=== PATIENT | female | born 1990 | race Two or more races ===

== ENCOUNTER 2018-09-13 11:26 | Inpatient (IN) | payer OTHER ==
[2018-09-13] MEDS ORDERED: Nalbuphine 20 MG/1 ML Amp IVPUSH PRN (13:59)
[2018-09-13] MEDS ORDERED: Sodium Chloride 0.9% 10 ML Syringe FLUSH PRN (13:59)
[2018-09-13] MEDS ORDERED: Acetaminophen 325 MG Tab PO PRN ×2 (13:59→23:05)
[2018-09-13] MEDS ORDERED: Ondansetron 4 MG/2 ML SDV IVPUSH PRN ×2 (13:59→16:17)
[2018-09-13] MEDS ORDERED: Lactated Ringers 1,000 ML IV SCH (14:00)
[2018-09-13] MEDS ORDERED: Oxytocin/Lactated Ringers 10 UNIT/1,000 ML BAG IV SCH ×3 (14:00→23:05)
--- NOTE | 2018-09-13 14:25 | PCM.LDHP ---
L&D History of Present Illness - General Date of Service: 09/13/18 Admit Problem/Dx: Patient Status Order with Admit Dx/Problem 09/13/18 13:59 Patient Status [ADT] Routine Admission Diagnosis/Problem Admission Diagnosis/Problem Spontaneous rupture of membranes Source of Information: Patient, Family History Limitations: Reports: Language Barrier (Fairly good Kyrgyz skills) - History of Present Illness Introduction:: Gladis Valdez (Opal) is a 28-year-old at 40 weeks 4 days by 12 week ultrasound (TONY 09/09/2018) who initially presented for evaluation of decreased movement and contractions. She states that this morning she was not feeling the baby move very much. She also reports that she was having a mild pinching sensation in her lower abdomen that would come and go every 5-10 minutes. She also reports that she was having some pink tinged vaginal discharge when she would use restroom. On arrival to labor and delivery she was able to get a reactive NST and when the nurse was performing the cervical exam she had spontaneous rupture of membranes with clear fluid. She states that since being at the hospital and having the reactive NST she has felt the baby move. Timing/Duration: Reports: sudden onset (Sudden gush of clear fluid at time of cervical exam), intermittent (Contractions with a pinching sensation in her lower abdomen) Location, : Reports: Abdomen (Lower), Uterus Quality: Reports: Other (Pinching) Severity: Mild Improves with: Reports: None Worsens with: Reports: None Associated Symptoms: Reports: vaginal bleeding (Light pink discharge), vaginal fluid (Moderate amount of fluid with rupture of membranes) Present Illness Comments:: Gladis Valdez (Opal) is a 28-year-old at 40 weeks 4 days by 12 week ultrasound (see TONY 09/09/2018) who presents with spontaneous rupture membranes with clear fluid. She has had routine care with Dr. Irwin since 9 weeks gestational age. Review of her labs shows B+ blood type with negative antibody screen. Her rubella was negative and she is not immune. Her syphilis, hepatitis B surface antigen and HIV tests were all negative. Her gonorrhea and Chlamydia test were both negative. She had a negative urine culture that only showed contamination. She had an abnormal Pap smear with colposcopy performed that was felt to have low-grade changes. Her anatomy ultrasound was within normal limits. Her 1 hour glucose test was normal at 114. Her hemoglobin was 11.5 with platelets of 303 on 06/15/2018. Her GBS was negative. This is her first . Her is complicated by: * Rubella nonimmune status, patient declines vaccination after delivery * Patient declines other vaccinations during including influenza and TDaP * ancestry * Abnormal LSIL Pap smear with plans for further evaluation after delivery - Related Data Allergies/Adverse Reactions: Allergies Allergy/AdvReac Type Severity Reaction Status Date / Time sulfamethoxazole Allergy Dizziness Verified 08/10/18 18:47 [From Bactrim] trimethoprim [From Bactrim] Allergy Dizziness Verified 08/10/18 18:47 Home Medications: Home Meds PNV95/Ferrous Fumarate/FA [ Vitamin Tablet] 1 each PO BEDTIME 09/13/18 [ History] Past Medical History - Past Health History Medical/Surgical History: Denies 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 - Recreational Drug Use Recreational Drug Use: No - Living Situation & Occupation Living situation: Reports: , with Significant Other H&P Review of Systems - Review of Systems: Review Of Systems: See Below General: Denies: Fever, Chills, Malaise, Weakness, Fatigue HEENT: Reports: Glasses. Denies: Headaches, Rhinitis, Post Nasal Drip, Sinus Congestion, Sore Throat, Visual Changes Pulmonary: Denies: Shortness of Breath, Wheezing, Cough Cardiovascular: Reports: Palpitations (Past evening but has resolved this morning). Denies: Chest Pain, Lightheadedness Gastrointestinal: Denies: Abdominal Pain, Constipation, Diarrhea, Nausea, Vomiting Genitourinary: Denies: Dysuria, Frequency, Burning, Pain, Urgency Musculoskeletal: Reports: Back Pain. Denies: Joint Pain, Muscle Pain Skin: Denies: Rash, Lesions Psychiatric: Denies: Depression, Anxiety Hematologic/Lymphatic: Denies: Anemia L&D Exam - Exam Exam: See Below - Vital Signs Vital Signs: Last Vital Signs Temp 36.1 C 09/13/18 11:47 Pulse 68 09/13/18 13:31 Resp 17 09/13/18 11:47 BP 133/69 09/13/18 13:31 Pulse Ox Weight: 105.233 kg - OB Specific Contraction Duration (sec): 45-60 Contraction Frequency (min): Irregular Contraction Intensity: Mild Movement: Active Heart Tones: Present Heart Tones per Min: 125 (+15 x 15 accelerations, occasional variable decelerations) Presentation: Vertex Estimated Weight: 7-7.5 pounds by Emanuel's - No Score No Score Cervix Position: Posterior No Score Consistency: Soft No Score Effacement: >80% (80%) No Score Dilation: 3-4 cm (3 cm) No Score Infant's Station: -2 No Score Total: 8 - Exam General: Alert, Oriented HEENT: Conjunctiva Clear, EOMI Neck: Supple, Trachea Midline Lungs: Clear to Auscultation, Normal Respiratory Effort Cardiovascular: Regular Rate, Regular Rhythm GI/Abdominal Exam: Soft, Non-Tender, No Distention, Other (Gravid). No: Guarding, Rigid, Rebound Back Exam: Normal Inspection, Full Range of Motion Extremities: Normal Inspection, No Pedal Edema Skin: Warm, Dry, Intact Psychiatric: Alert, Normal Affect, Normal Mood - Problem List (1) 40 weeks gestation of SNOMED Code(s): 97392494 ICD Code: Z3A.40 - 40 WEEKS GESTATION OF Status: Acute Current Visit: Yes (2) ancestry requiring population-specific genetic screening SNOMED Code(s): 55911715, 392761887, 341982226 ICD Code: Z13.9 - ENCOUNTER FOR SCREENING, UNSPECIFIED Status: Acute Current Visit: Yes (3) Rubella non-immune status, antepartum SNOMED Code(s): 022537774 ICD Code: O99.89 - OTH DISEASES AND CONDITIONS COMPL PREG/CHLDBRTH; Z28.3 - UNDERIMMUNIZATION STATUS Status: Acute Current Visit: Yes (4) Abnormal Pap smear of cervix SNOMED Code(s): 746956615 ICD Code: R87.619 - UNSP ABNORMAL CYTOLOG FINDINGS IN SPECMN FROM CERVIX UTERI Status: Acute Current Visit: Yes Problem List Initiated/Reviewed/Updated: Yes Orders Last 24hrs: Active Orders 24 hr Category Date Time Status Patient Status [ADT] Routine ADT 09/13/18 13:59 Ordered Activity as Tolerated [RC] PFP Care 09/13/18 13:59 Ordered Communication Order [RC] ASDIRECTED Care 09/13/18 13:59 Ordered Communication Order [RC] ASDIRECTED Care 09/13/18 14:02 Ordered Communication Order [RC] ASDIRECTED Care 09/13/18 14:02 Ordered Heart Tones [RC] ASDIRECTED Care 09/13/18 14:00 Ordered Notify Provider Vital Signs [RC] PRN Care 09/13/18 14:01 Ordered Notify Provider [RC] ASDIRECTED Care 09/13/18 14:02 Ordered Notify Provider [RC] PFP Care 09/13/18 13:59 Ordered Notify Provider [RC] PRN Care 09/13/18 13:59 Ordered Peripheral IV Care [RC] . DIRECTED Care 09/13/18 14:00 Ordered Pump Management, Intrathecal [RC] ASDIRECTED Care 09/13/18 14:01 Ordered Urinary Catheter Assessment [RC] ASDIRECTED Care 09/13/18 13:59 Ordered Vital Signs [RC] PER UNIT ROUTINE Care 09/13/18 13:59 Ordered Regular Diet [DIET] Diet 09/13/18 Lunch Ordered CBC WITH AUTO DIFF [HEME] Routine Lab 09/13/18 13:59 Ordered RAPID PLASMA REAGIN,RPR [CHEM] Routine Lab 09/13/18 14:02 Ordered Acetaminophen [Tylenol] Med 09/13/18 13:59 Ordered 650 mg PO Q6H PRN Lactated Ringers [Ringers, Lactated] 1,000 ml Med 09/13/18 14:00 Ordered IV ASDIRECTED Nalbuphine [Nubain] Med 09/13/18 13:59 Ordered 10 mg IVPUSH Q2H PRN Ondansetron [Zofran] Med 09/13/18 13:59 Ordered 4 mg IVPUSH Q4H PRN Oxytocin/Lactated Ringers [Pitocin in LR 10 Units/1,000 Med 09/13/18 14:00 Ordered ML] 10 unit in 1,000 ml IV .CONTINUOUS Oxytocin/Lactated Ringers [Pitocin in LR 10 Units/1,000 Med 09/13/18 14:15 Ordered ML] 10 unit in 1,000 ml IV TITRATE Sodium Chloride 0.9% [Saline Flush] Med 09/13/18 13:59 Ordered 10 ml FLUSH ASDIRECTED PRN Electronic Heart Tones Ext w TOCO [WOMSER] Oth 09/13/18 13:59 Ordered Routine Electronic Heart Tones Internal [WOMSER] Per Unit Oth 09/13/18 13:59 Ordered Routine Peripheral IV Insertion Adult [OM.PC] Routine Oth 09/13/18 13:59 Ordered Resuscitation Status Routine Resus Stat 09/13/18 13:59 Ordered Medication Orders Acetaminophen (Tylenol) 650 mg PO Q6H PRN PRN Reason: Pain (Mild 1-3) and fever Lactated Ringer's (Ringers, Lactated) 1,000 mls @ 100 mls/hr IV ASDIRECTED PAT Oxytocin/Lactated Ringer's (Pitocin In Lr 10 Units/1,000 Ml) 10 unit in 1,000 mls @ 100 mls/hr IV .CONTINUOUS PAT Oxytocin/Lactated Ringer's (Pitocin In Lr 10 Units/1,000 Ml) 10 unit in 1,000 mls @ 12 mls/hr IV TITRATE PAT; Protocol Nalbuphine HCl (Nubain) 10 mg IVPUSH Q2H PRN PRN Reason: Pain (moderate 4-6) Ondansetron HCl (Zofran) 4 mg IVPUSH Q4H PRN PRN Reason: Nausea/Vomiting Sodium Chloride (Saline Flush) 10 ml FLUSH ASDIRECTED PRN PRN Reason: Keep Vein Open Assessment/Plan Comment:: Refer to observation for spontaneous rupture of membranes Start Pitocin for augmentation of labor with irregular contractions noted despite rupture membranes Continuous monitoring Place IV and have Lactated Ringer's at 125 ml/hr May have small amounts of regular diet Activity as tolerated May have epidural as desired Plans to breast-feed after delivery Anticipate vaginal delivery unless otherwise indicated Alcides Vasquez M.D. 2:38 PM 09/13/2018
[2018-09-13] MEDS ORDERED: Nalbuphine 20 MG/ML 1 ML Syringe IVPUSH PRN (15:00)
[2018-09-13] MEDS ORDERED: fentaNYL 100 MCG/2 ML SDV EPIDUR PRN (16:17)
[2018-09-13] MEDS ORDERED: ePHEDrine 50 MG/ML SDV IVPUSH PRN (16:17)
[2018-09-13] MEDS ORDERED: fentaNYL/Bupivacaine-NS 2 MCG/ML-0.125%/PF 100 ML Bag EP SCH (16:30)
--- NOTE | 2018-09-13 17:20 | PCM.PREANE ---
Preanesthetic Assessment - Anesthesia/Transfusion/Family Hx Anesthesia History: No Prior Anesthesia Family History of Anesthesia Reaction: No Transfusion History: No Prior Transfusion(s) Intubation History: Unknown - Review of Systems General: No Symptoms Pulmonary: No Symptoms Cardiovascular: Palpitations Gastrointestinal: No Symptoms (GERD) Neurological: No Symptoms Other: Reports: None - Physical Assessment NPO Status Date: 09/13/18 NPO Status Time: 17:30 Pulse: 68 O2 Sat by Pulse Oximetry: 99 Respiratory Rate: 17 Blood Pressure: 133/69 Temperature: 36.1 C Vital Signs: Last Vital Signs Temp 36.1 C 09/13/18 13:59 Pulse 73 09/13/18 13:59 Resp 17 09/13/18 11:47 BP 113/70 09/13/18 13:59 Pulse Ox Height: 1.7 m Weight: 105.233 kg ASA Class: 2 Mental Status: Alert & Oriented x3 Airway Class: Mallampati = 2 Dentition: Reports: Normal Dentition, Caries Thyro-Mental Finger Breadths: 3 Mouth Opening Finger Breadths: 3 ROM/Head Extension: Full Lungs: Clear to Auscultation, Normal Respiratory Effort Cardiovascular: Regular Rate, Regular Rhythm, No Murmurs - Lab Values: Laboratory Last Values WBC 11.86 K/mm3 (3.98-10.04) H 09/13/18 14:00 RBC 5.28 M/mm3 (3.98-5.22) H 09/13/18 14:00 Hgb 12.3 gm/L (11.2-15.7) 09/13/18 14:00 Hct 35.3 % (34.1-44.9) 09/13/18 14:00 MCV 66.9 fl (79.4-94.8) L 09/13/18 14:00 MCH 23.3 pg (25.6-32.2) L 09/13/18 14:00 MCHC 34.8 g/dl (32.2-35.5) 09/13/18 14:00 RDW Std Deviation 38.8 fL (36.4-46.3) 09/13/18 14:00 Plt Count 250 K/mm3 (182-369) 09/13/18 14:00 Neut % (Auto) 79.0 % (34.0-71.1) H 09/13/18 14:00 Lymph % (Auto) 11.6 % (19.3-51.7) L 09/13/18 14:00 Ashley % (Auto) 8.0 % (4.7-12.5) 09/13/18 14:00 Eos % (Auto) 0.8 (0.7-5.8) 09/13/18 14:00 Baso % (Auto) 0.2 % (0.1-1.2) 09/13/18 14:00 Neut # (Auto) 9.38 K/mm3 (1.56-6.13) H 09/13/18 14:00 Lymph # (Auto) 1.37 K/mm3 (1.18-3.74) 09/13/18 14:00 Ashley # (Auto) 0.95 K/mm3 (0.24-0.36) H 09/13/18 14:00 Eos # (Auto) 0.09 K/mm3 (0.04-0.36) 09/13/18 14:00 Baso # (Auto) 0.02 K/mm3 (0.01-0.08) 09/13/18 14:00 Manual Slide Review Abnormal smear 09/13/18 14:00 Above labs reviewed and noted and within acceptable ranges to proceed with epidural if desired. - Allergies Allergies/Adverse Reactions: Allergies Allergy/AdvReac Type Severity Reaction Status Date / Time sulfamethoxazole Allergy Dizziness Verified 08/10/18 18:47 [From Bactrim] trimethoprim [From Bactrim] Allergy Dizziness Verified 08/10/18 18:47 - Anesthesia Plan Pre-Op Medication Ordered: None - Acknowledgements Anesthesia Type Planned: Epidural Pt an Appropriate Candidate for the Planned Anesthesia: Yes Alternatives and Risks of Anesthesia Discussed w Pt/Guardian: Yes Pt/Guardian Understands and Agrees with Anesthesia Plan: Yes PreAnesthesia Questionnaire - Past Health History Medical/Surgical History: Denies 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 USE Smoking Status *Q: Never Smoker Second Hand Smoke Exposure: No Recreational Drug Use History: No - HOME MEDS Home Medications: Home Meds PNV95/Ferrous Fumarate/FA [ Vitamin Tablet] 1 each PO BEDTIME 09/13/18 [ History] - CURRENT (IN HOUSE) MEDS Current Meds: Current Medications Acetaminophen (Tylenol) 650 mg PO Q6H PRN PRN Reason: Pain (Mild 1-3) and fever Ephedrine Sulfate (Ephedrine Sulfate) 5 mg IVPUSH ASDIRECTED PRN PRN Reason: Hypotension Fentanyl (Sublimaze) 100 mcg EPIDUR Q3H PRN PRN Reason: Pain Fentanyl/Bupivacaine HCl ([id number]-[id number] 2 Mcg/Ml-0.125%) 100 ml EP ASDIRECTED PAT Lactated Ringer's (Ringers, Lactated) 1,000 mls @ 100 mls/hr IV ASDIRECTED PAT Last Admin: 09/13/18 14:30 Dose: 100 mls/hr Oxytocin/Lactated Ringer's (Pitocin In Lr 10 Units/1,000 Ml) 10 unit in 1,000 mls @ 100 mls/hr IV .CONTINUOUS PAT Oxytocin/Lactated Ringer's (Pitocin In Lr 10 Units/1,000 Ml) 10 unit in 1,000 mls @ 12 mls/hr IV TITRATE PAT; Protocol Last Titration: 09/13/18 16:51 Dose: 10 munits/min, 60 mls/hr Nalbuphine HCl (Nubain) 10 mg IVPUSH Q2H PRN PRN Reason: Pain (moderate 4-6) Ondansetron HCl (Zofran) 4 mg IVPUSH Q4H PRN PRN Reason: Nausea/Vomiting Ondansetron HCl (Zofran) 4 mg IVPUSH ONETIME PRN PRN Reason: Nausea/Vomiting Sodium Chloride (Saline Flush) 10 ml FLUSH ASDIRECTED PRN PRN Reason: Keep Vein Open Discontinued Medications Nalbuphine HCl (Nubain) 10 mg IVPUSH Q2H PRN PRN Reason: Pain (moderate 4-6)
--- NOTE | 2018-09-13 19:54 | PCM.PNLD ---
Labor Progress Note - VS & Meds Vital Signs: Last Vital Signs Temp 36.1 C 09/13/18 18:36 Pulse 68 09/13/18 18:36 Resp 17 09/13/18 18:36 BP 133/69 09/13/18 18:36 Pulse Ox 99 09/13/18 18:36 Active Medications: Current Medications Acetaminophen (Tylenol) 650 mg PO Q6H PRN PRN Reason: Pain (Mild 1-3) and fever Ephedrine Sulfate (Ephedrine Sulfate) 5 mg IVPUSH ASDIRECTED PRN PRN Reason: Hypotension Fentanyl (Sublimaze) 100 mcg EPIDUR Q3H PRN PRN Reason: Pain Fentanyl/Bupivacaine HCl (Vqutmrik-Tqjte-Jb 2 Mcg/Ml-0.125%) 100 ml EP ASDIRECTED PAT Lactated Ringer's (Ringers, Lactated) 1,000 mls @ 100 mls/hr IV ASDIRECTED PAT Last Admin: 09/13/18 14:30 Dose: 100 mls/hr Oxytocin/Lactated Ringer's (Pitocin In Lr 10 Units/1,000 Ml) 10 unit in 1,000 mls @ 100 mls/hr IV .CONTINUOUS PAT Oxytocin/Lactated Ringer's (Pitocin In Lr 10 Units/1,000 Ml) 10 unit in 1,000 mls @ 12 mls/hr IV TITRATE PAT; Protocol Last Titration: 09/13/18 16:51 Dose: 10 munits/min, 60 mls/hr Nalbuphine HCl (Nubain) 10 mg IVPUSH Q2H PRN PRN Reason: Pain (moderate 4-6) Ondansetron HCl (Zofran) 4 mg IVPUSH Q4H PRN PRN Reason: Nausea/Vomiting Ondansetron HCl (Zofran) 4 mg IVPUSH ONETIME PRN PRN Reason: Nausea/Vomiting Sodium Chloride (Saline Flush) 10 ml FLUSH ASDIRECTED PRN PRN Reason: Keep Vein Open Discontinued Medications Nalbuphine HCl (Nubain) 10 mg IVPUSH Q2H PRN PRN Reason: Pain (moderate 4-6) - Uterine Contractions Uterine Monitoring Mode: IUPC Contraction Frequency (min): 1-3 Contraction Duration (sec): 60 Contraction Intensity: Moderate to Strong Uterine Resting Tone: Soft - Monitoring Monitor Mode: Doppler/Auscultation Heart Rate (FHR) Baseline: 140 Heart Rate (FHR) Variability: Moderate (6-25 bmp) Accelerations: Present, 15x15 Decelerations: Early, Recurrent (>50% x 20 min) Strip Review: Category I - Vaginal Exam Dilation (cm): 6 Effacement (Percent): 90 Station: -1 Cervical Position: Anterior Sterile Vaginal Exam Performed By: Alcides Vasquez Vaginal Exam Comment: Intrauterine pressure catheter placed without difficulty due to difficulty monitoring contractions. IUPC was placed without difficulty. Mother and baby tolerated procedure without complications. - Labor Progress (Free Text) Labor Progress: Patient was having recurrent decelerations with difficulty monitoring contractions pattern with external tocometer. Intrauterine pressure catheter was discussed with the patient and she gave verbal consent to have IUPC placed. IUPC was placed without difficulty. Once the IUPC was placed with her able to monitor contractions more consistently in the decelerations that the patient was having were early decelerations and not late decelerations. We will continue to monitor closely. Patient declines epidural at this time. Anticipate vaginal delivery unless otherwise indicated. Alcides Vasquez M.D. 7:54 PM 09/13/2018
[2018-09-13] MEDS ORDERED: Lidocaine 1% 50 ML MDV ONE (21:26)
[2018-09-13] MEDS ORDERED: Lidocaine 1% 20 ML MDV INJECT SCH (21:45)
--- NOTE | 2018-09-13 22:29 | PCM.DEL ---
L & D Note - General Info Date of Service: 09/13/18 Mother's Due Date: 09/09/18 - Delivery Note Labor: Spontaneous, Augmented by Oxytocin Delivery Outcome: Livebirth Infant Delivery Method: Spontaneous Vaginal Delivery-Single Presentation: Right Occiput Anterior (KEVIN) Nuchal Cord: None Prep: Povidone-Iodine (Betadine Anesthesia Type: Local Anesthetic: Lidocaine (Xylocaine) 1% Plain Local Anesthetic Volume: Other (12 mL) Amniotic Fluid Description: Clear Episiotomy Type: None Laceration: 2nd Degree (right vaginal and periurethral repaired with 3-0 and 4- 0 Vicryl, left posterior vaginal repaired with 3-0 Vicryal) Placenta: Intact, Spontaneous Cord: 3 Vessels Estimated Blood Loss: 450 Resuscitation Needed: No [place]: Bulb Syringe, Stimulated, Warmed, [place] Used Provider: Alcides Vasquez Score 1 min: 8 Score 5 min: 9 Second Stage Interventions: Reports: Pushing Effectively, Pushing, Pulls Own Legs Back, Pushing, Stirrups/Leg Supports Delivery Comments (Free Text/Narrative):: Stage I: Gladis Valdez (Opal) was admitted after she had spontaneous rupture membranes on cervical exam. She had initially presented for decreased movement and had a reactive NST. She was also having intermittent pain in the lower abdomen and the nurse was going to check her cervix when she had spontaneous rupture membranes. She had clear fluid with rupture membranes. On admission her cervix was dilated to 3 cm. She was GBS negative. She was given Pitocin for augmentation of labor. She progressed to complete and pushing. Stage II: On 09/13/2018 she had a normal vaginal delivery of a live female at 2117. Apgars of 8 & 9. Weight of 3140 g (6 lbs 15 oz). Length of 19.75 inches. There was no nuchal cord. Infant was delivered in KEVIN position. The cord was doubly clamped and cut by father of the infant. Infant was placed on mother's abdomen. Stage III: She had a spontaneous delivery of an intact placenta in Aline presentation. Three vessel cord. She was given pitocin and fundal massage. She had a second-degree right vaginal and periurethral laceration that was repaired with 3-0 Vicryl and 4-0 Vicryl. She had a second-degree left posterior vaginal laceration that was repaired with 3-0 Vicryl. Mom and baby were stable to recovery. EBL of 450 mL. Alcides Vasquez MD 10:29 PM 09/13/2018 - General Info Date of Service: 09/13/18 - Patient Data Vitals - Most Recent: Last Vital Signs Temp 36.1 C 09/13/18 18:36 Pulse 68 09/13/18 18:36 Resp 17 09/13/18 18:36 BP 133/69 09/13/18 18:36 Pulse Ox 99 09/13/18 18:36 Weight - Most Recent: 105.233 kg Lab Results Last 24 Hours: Laboratory Results - last 24 hr 09/13/18 Range/Units 14:00 WBC 11.86 H (3.98-10.04) K/mm3 RBC 5.28 H (3.98-5.22) M/mm3 Hgb 12.3 (11.2-15.7) gm/L Hct 35.3 (34.1-44.9) % MCV 66.9 L (79.4-94.8) fl MCH 23.3 L (25.6-32.2) pg MCHC 34.8 (32.2-35.5) g/dl RDW Std Deviation 38.8 (36.4-46.3) fL Plt Count 250 (182-369) K/mm3 Neut % (Auto) 79.0 H (34.0-71.1) % Lymph % (Auto) 11.6 L (19.3-51.7) % [place] % (Auto) 8.0 (4.7-12.5) % Eos % (Auto) 0.8 (0.7-5.8) Baso % (Auto) 0.2 (0.1-1.2) % Neut # (Auto) 9.38 H (1.56-6.13) K/mm3 Lymph # (Auto) 1.37 (1.18-3.74) K/mm3 [place] # (Auto) 0.95 H (0.24-0.36) K/mm3 Eos # (Auto) 0.09 (0.04-0.36) K/mm3 Baso # (Auto) 0.02 (0.01-0.08) K/mm3 Manual Slide Review Abnormal smear Med Orders - Current: Current Medications Acetaminophen (Tylenol) 650 mg PO Q6H PRN PRN Reason: Pain (Mild 1-3) and fever Ephedrine Sulfate (Ephedrine Sulfate) 5 mg IVPUSH ASDIRECTED PRN PRN Reason: Hypotension Fentanyl (Sublimaze) 100 mcg EPIDUR Q3H PRN PRN Reason: Pain Fentanyl/Bupivacaine HCl (Hislkgiv-Waoch-Me 2 Mcg/Ml-0.125%) 100 ml EP ASDIRECTED PAT Lactated Ringer's (Ringers, Lactated) 1,000 mls @ 100 mls/hr IV ASDIRECTED PAT Last Admin: 09/13/18 14:30 Dose: 100 mls/hr Oxytocin/Lactated Ringer's (Pitocin In Lr 10 Units/1,000 Ml) 10 unit in 1,000 mls @ 100 mls/hr IV .CONTINUOUS PAT Oxytocin/Lactated Ringer's (Pitocin In Lr 10 Units/1,000 Ml) 10 unit in 1,000 mls @ 12 mls/hr IV TITRATE PAT; Protocol Last Titration: 09/13/18 16:51 Dose: 10 munits/min, 60 mls/hr Lidocaine HCl (Xylocaine 1%) 50 ml INJECT .ONETIME PAT Last Admin: 09/13/18 21:45 Dose: 50 ml Nalbuphine HCl (Nubain) 10 mg IVPUSH Q2H PRN PRN Reason: Pain (moderate 4-6) Ondansetron HCl (Zofran) 4 mg IVPUSH Q4H PRN PRN Reason: Nausea/Vomiting Ondansetron HCl (Zofran) 4 mg IVPUSH ONETIME PRN PRN Reason: Nausea/Vomiting Sodium Chloride (Saline Flush) 10 ml FLUSH ASDIRECTED PRN PRN Reason: Keep Vein Open Discontinued Medications Lidocaine HCl (Xylocaine 1%) Confirm Administered Dose 50 ml .ROUTE .STK-MED ONE Stop: 09/13/18 21:27 Last Admin: 09/13/18 21:38 Dose: Not Given Nalbuphine HCl (Nubain) 10 mg IVPUSH Q2H PRN PRN Reason: Pain (moderate 4-6) - Problem List & Annotations (1) 40 weeks gestation of SNOMED Code(s): 97465484 Code(s): Z3A.40 - 40 WEEKS GESTATION OF Status: Acute Current Visit: Yes (2) ancestry requiring population-specific genetic screening SNOMED Code(s): 88379690, 767791309, 281475172 Code(s): Z13.9 - ENCOUNTER FOR SCREENING, UNSPECIFIED Status: Acute Current Visit: Yes (3) Rubella non-immune status, antepartum SNOMED Code(s): 796137947 Code(s): O99.89 - OTH DISEASES AND CONDITIONS COMPL PREG/CHLDBRTH; Z28.3 - UNDERIMMUNIZATION STATUS Status: Acute Current Visit: Yes (4) Abnormal Pap smear of cervix SNOMED Code(s): 087254285 Code(s): R87.619 - UNSP ABNORMAL CYTOLOG FINDINGS IN SPECMN FROM CERVIX UTERI Status: Acute Current Visit: Yes (5) Vaginal delivery SNOMED Code(s): 067820157 Code(s): O80 - ENCOUNTER FOR FULL-TERM UNCOMPLICATED DELIVERY Status: Acute Current Visit: Yes (6) Second degree perineal laceration during delivery SNOMED Code(s): 9409475 Code(s): O70.1 - SECOND DEGREE PERINEAL LACERATION DURING DELIVERY Status: Acute Current Visit: Yes - Problem List Review Problem List Initiated/Reviewed/Updated: Yes - My Orders Last 24 Hours: My Active Orders 09/13/18 13:59 Patient Status [ADT] Routine Activity as Tolerated [RC] PFP Communication Order [RC] ASDIRECTED Notify Provider [RC] PFP Notify Provider [RC] PRN Urinary Catheter Assessment [RC] ASDIRECTED Vital Signs [RC] PER UNIT ROUTINE Acetaminophen [Tylenol] 650 mg PO Q6H PRN Ondansetron [Zofran] 4 mg IVPUSH Q4H PRN Sodium Chloride 0.9% [Saline Flush] 10 ml FLUSH ASDIRECTED PRN Electronic Heart Tones Ext w TOCO [WOMSER] Routine Electronic Heart Tones Internal [WOMSER] Per Unit Routine Peripheral IV Insertion Adult [OM.PC] Routine Resuscitation Status Routine 09/13/18 14:00 Heart Tones [RC] ASDIRECTED Peripheral IV Care [RC] Q2HR RAPID PLASMA REAGIN,RPR [CHEM] Routine Lactated Ringers [Ringers, Lactated] 1,000 ml IV ASDIRECTED Oxytocin/Lactated Ringers [Pitocin in LR 10 Units/1,000 ML] 10 unit in 1,000 ml IV .CONTINUOUS 09/13/18 14:01 Notify Provider Vital Signs [RC] PRN Pump Management, Intrathecal [RC] ASDIRECTED 09/13/18 14:02 Communication Order [RC] ASDIRECTED Communication Order [RC] ASDIRECTED Notify Provider [RC] ASDIRECTED 09/13/18 14:15 Oxytocin/Lactated Ringers [Pitocin in LR 10 Units/1,000 ML] 10 unit in 1,000 ml IV TITRATE 09/13/18 15:00 Nalbuphine [Nubain] 10 mg IVPUSH Q2H PRN 09/13/18 21:45 Lidocaine 1% [Xylocaine 1%] 50 ml INJECT .ONETIME 09/13/18 22:20 Patient Status Manage Transfer [TRANSFER] Routine 09/13/18 Lunch Regular Diet [DIET] - Plan Plan:: Admit to inpatient following normal spontaneous vaginal delivery Continue Pitocin per unit protocol following delivery of placenta and lactated Ringer's until tolerating regular diet Regular diet Vitals per unit routine Ibuprofen and Tylenol for pain control Assist with breast-feeding as needed Continue to monitor lochia Anticipate discharge home on day #2 Alcides Vasquez MD 10:29 PM 09/13/2018
[2018-09-13] MEDS ORDERED: Lanolin 100% Cream 7 GM Tube TOP PRN (23:05)
[2018-09-13] MEDS ORDERED: Magnesium Hydroxide 400 MG/5 ML Susp 30 ML Cup PO PRN (23:05)
[2018-09-13] MEDS ORDERED: Witch Hazel Medicated Pads 100/Jar TOP PRN (23:05)
[2018-09-13] MEDS ORDERED: Hydrocortisone Acetate 25 MG Supp RECTAL PRN (23:05)
[2018-09-13] MEDS ORDERED: Docusate Sodium 100 MG Cap PO PRN (23:05)
[2018-09-13] MEDS ORDERED: Benzocaine/Menthol 20%-0.5% Spray 56 GM Canister TOP PRN (23:05)
[2018-09-14] MEDS: Ibuprofen 600 MG Tab PO PRN ×2 (08:35→16:33)
--- NOTE | 2018-09-14 08:45 | PCM.SN ---
- Free Text/Narrative Note: Post Progress Note PPD # 1 Subjective: Doing well overall. Ambulating without difficulty. Lochia minimal. Voiding without difficulty. Tolerating regular diet without nausea or vomiting. Reports having abdominal cramping especially with breast-feeding and soreness in the perineum. Pain controlled with oral medications. Breast feeding with minimal difficulty. Objective: Vitals: Vital Signs - 24 hr 09/13/18 09/13/18 09/13/18 11:46 11:47 12:01 Temperature Temperature [ 36.1 C Temporal] Pulse, 90 68 Peripheral Pulse, 92 Peripheral [ Pulse Oximetry] Respiratory 17 Rate Blood Pressure Blood Pressure 113/70 [Upper Arm] O2 Sat by Pulse Oximetry 09/13/18 09/13/18 09/13/18 12:31 13:01 13:31 Temperature Temperature [ Temporal] Pulse, 75 82 68 Peripheral Pulse, Peripheral [ Pulse Oximetry] Respiratory Rate Blood Pressure 133/69 Blood Pressure [Upper Arm] O2 Sat by Pulse Oximetry 09/13/18 09/13/18 13:59 18:36 Temperature 36.1 C Temperature [ 36.1 C Temporal] Pulse, 68 Peripheral Pulse, 73 Peripheral [ Pulse Oximetry] Respiratory 17 Rate Blood Pressure 133/69 Blood Pressure 113/70 [Upper Arm] O2 Sat by Pulse 99 Oximetry Physical Exam General: Alert and oriented, no acute distress Lungs: Clear to auscultation bilaterally Heart: Regular rate and rhythm Abdomen: Soft, minimal appropriate tenderness, non-distended, fundus midline, nontender, and at the umbilicus Extremities: No edema Laboratory Tests 09/13/18 09/14/18 Range/Units 14:00 06:10 WBC 11.86 H 19.80 H (3.98-10.04) K/mm3 RBC 5.28 H 4.56 (3.98-5.22) M/mm3 Hgb 12.3 10.3 L (11.2-15.7) gm/L Hct 35.3 30.6 L (34.1-44.9) % MCV 66.9 L 67.1 L (79.4-94.8) fl MCH 23.3 L 22.6 L (25.6-32.2) pg MCHC 34.8 33.7 (32.2-35.5) g/dl RDW Std Deviation 38.8 38.0 (36.4-46.3) fL Plt Count 250 208 (182-369) K/mm3 MPV TNP Neut % (Auto) 79.0 H 84.6 H (34.0-71.1) % Lymph % (Auto) 11.6 L 9.0 L (19.3-51.7) % [place] % (Auto) 8.0 5.8 (4.7-12.5) % Eos % (Auto) 0.8 0.1 L (0.7-5.8) Baso % (Auto) 0.2 0.1 (0.1-1.2) % Neut # (Auto) 9.38 H 16.78 H (1.56-6.13) K/mm3 Lymph # (Auto) 1.37 1.79 (1.18-3.74) K/mm3 [place] # (Auto) 0.95 H 1.14 H (0.24-0.36) K/mm3 Eos # (Auto) 0.09 0.01 L (0.04-0.36) K/mm3 Baso # (Auto) 0.02 0.01 (0.01-0.08) K/mm3 Manual Slide Review Abnormal smear Abnormal smear ASSESSMENT: 28-year-old female 001 s/p normal vaginal delivery PPD #1, complicated by ancestry, rubella nonimmune status but declines vaccination and abnormal Pap smear in PLAN: Doing well Breast feeding with minimal difficulty. Assist as needed Lochia minimal. Continue to monitor for appropriate lochia. Continue routine care Anticipate discharge home tomorrow Alcides Vasquez MD 8:42 AM 09/14/2018
[2018-09-14] MEDS ORDERED: Prenatal Multivitamin with Calcium/Folic Acid/Iron Tab PO SCH (09:00)
--- NOTE | 2018-09-15 09:50 | PCM.SN ---
- Free Text/Narrative Note: Post Progress Note PPD # 2 Subjective: Doing well overall. Ambulating without difficulty. Lochia minimal. Voiding without difficulty. Tolerating regular diet without nausea or vomiting. Reports having pain has improved significantly since yesterday. Reports that she'll have some mild sharp pain in the perineum with ambulation. Pain controlled with oral medications. Breast feeding with minimal difficulty. Objective: Vitals: Vital Signs - 24 hr 09/14/18 09/14/18 09/15/18 16:36 22:15 00:14 Temperature 36.4 C 37.1 C 36.7 C Pulse, 85 87 91 Peripheral Respiratory 18 14 16 Rate Blood Pressure 136/78 112/91 H 120/69 O2 Sat by Pulse 98 100 98 Oximetry 09/15/18 03:47 Temperature 36.7 C Pulse, 84 Peripheral Respiratory 14 Rate Blood Pressure 139/91 H O2 Sat by Pulse 99 Oximetry Physical Exam General: Alert and oriented, no acute distress Lungs: Clear to auscultation bilaterally Heart: Regular rate and rhythm Breasts: Overall normal-appearing breasts bilaterally with cracked skin on nipple on the left side without bleeding, erythema or discharge. Abdomen: Soft, minimal appropriate tenderness, non-distended, fundus midline, nontender, and at the umbilicus Extremities: No edema ASSESSMENT: 28-year-old female 001 s/p normal vaginal delivery PPD #2, complicated by ancestry, rubella nonimmune status but declines vaccination and abnormal Pap smear in PLAN: Doing well Breast feeding with minimal difficulty. Assist as needed Lochia minimal. Continue to monitor for appropriate lochia. Continue routine care Patient with EPDS score of 15/30. Declines medication at this time. She will follow-up within 1 week with her regular [employer] provider for continued follow- up. Discharge home today Alcides Vasquez MD 9:47 AM 09/15/2018
--- NOTE | 2018-09-15 10:06 | PCM.DCSUM1 ---
Discharge Summary - Hospital Course Free Text/Narrative:: - General Info Date of Service: 09/13/18 Mother's Due Date: 09/09/18 - Delivery Note Labor: Spontaneous, Augmented by Oxytocin Delivery Outcome: Livebirth Infant Delivery Method: Spontaneous Vaginal Delivery-Single Presentation: Right Occiput Anterior (KEVIN) Nuchal Cord: None Prep: Povidone-Iodine (Betadine Anesthesia Type: Local Anesthetic: Lidocaine (Xylocaine) 1% Plain Local Anesthetic Volume: Other (12 mL) Amniotic Fluid Description: Clear Episiotomy Type: None Laceration: 2nd Degree (right vaginal and periurethral repaired with 3-0 and 4- 0 Vicryl, left posterior vaginal repaired with 3-0 Vicryal) Placenta: Intact, Spontaneous Cord: 3 Vessels Estimated Blood Loss: 450 Resuscitation Needed: No : Bulb Syringe, Stimulated, Warmed, [place] Used Provider: Alcides Vasquez Score 1 min: 8 Score 5 min: 9 Second Stage Interventions: Reports: Pushing Effectively, Pushing, Pulls Own Legs Back, Pushing, Stirrups/Leg Supports Delivery Comments (Free Text/Narrative):: Stage I: Gladis Valdez (Opal) was admitted after she had spontaneous rupture membranes on cervical exam. She had initially presented for decreased movement and had a reactive NST. She was also having intermittent pain in the lower abdomen and the nurse was going to check her cervix when she had spontaneous rupture membranes. She had clear fluid with rupture membranes. On admission her cervix was dilated to 3 cm. She was GBS negative. She was given Pitocin for augmentation of labor. She progressed to complete and pushing. Stage II: On 09/13/2018 she had a normal vaginal delivery of a live female at 2117. Apgars of 8 & 9. Weight of 3140 g (6 lbs 15 oz). Length of 19.75 inches. There was no nuchal cord. was delivered in KEVIN position. The cord was doubly clamped and cut by father of the . Infant was placed on mother's abdomen. Stage III: She had a spontaneous delivery of an intact placenta in Aline presentation. Three vessel cord. She was given pitocin and fundal massage. She had a second-degree right vaginal and periurethral laceration that was repaired with 3-0 Vicryl and 4-0 Vicryl. She had a second-degree left posterior vaginal laceration that was repaired with 3-0 Vicryl. Mom and baby were stable to recovery. EBL of 450 mL. HPI Initial Comments: - General Info Date of Service: 09/13/18 Mother's Due Date: 09/09/18 - Delivery Note Labor: Spontaneous, Augmented by Oxytocin Delivery Outcome: Livebirth Infant Delivery Method: Spontaneous Vaginal Delivery-Single Presentation: Right Occiput Anterior (KEVIN) Nuchal Cord: None Prep: Povidone-Iodine (Betadine Anesthesia Type: Local Anesthetic: Lidocaine (Xylocaine) 1% Plain Local Anesthetic Volume: Other (12 mL) Amniotic Fluid Description: Clear Episiotomy Type: None Laceration: 2nd Degree (right vaginal and periurethral repaired with 3-0 and 4- 0 Vicryl, left posterior vaginal repaired with 3-0 Vicryal) Placenta: Intact, Spontaneous Cord: 3 Vessels Estimated Blood Loss: 450 Resuscitation Needed: No [place]: Bulb Syringe, Stimulated, Warmed, [place] Used Provider: Alcides Vasquez Score 1 min: 8 Score 5 min: 9 Second Stage Interventions: Reports: Pushing Effectively, Pushing, Pulls Own Legs Back, Pushing, Stirrups/Leg Supports Delivery Comments (Free Text/Narrative):: Stage I: Gladis Valdez (Opal) was admitted after she had spontaneous rupture membranes on cervical exam. She had initially presented for decreased movement and had a reactive NST. She was also having intermittent pain in the lower abdomen and the nurse was going to check her cervix when she had spontaneous rupture membranes. She had clear fluid with rupture membranes. On admission her cervix was dilated to 3 cm. She was GBS negative. She was given Pitocin for augmentation of labor. She progressed to complete and pushing. Stage II: On 09/13/2018 she had a normal vaginal delivery of a live female at 2117. Apgars of 8 & 9. Weight of 3140 g (6 lbs 15 oz). Length of 19.75 inches. There was no nuchal cord. was delivered in KEVIN position. The cord was doubly clamped and cut by father of the infant. was placed on mother's abdomen. Stage III: She had a spontaneous delivery of an intact placenta in Aline presentation. Three vessel cord. She was given pitocin and fundal massage. She had a second-degree right vaginal and periurethral laceration that was repaired with 3-0 Vicryl and 4-0 Vicryl. She had a second-degree left posterior vaginal laceration that was repaired with 3-0 Vicryl. Mom and baby were stable to recovery. EBL of 450 mL. Brief History: - General Info. Date of Service: 09/13/18. Mother's Due Date: 09/09/18. - Delivery Note. Labor: Spontaneous, Augmented by Oxytocin. Delivery Outcome: Livebirth. Delivery Method: Spontaneous Vaginal Delivery-Single. Presentation: Right Occiput Anterior (KEVIN). Nuchal Cord : None. Prep: Povidone-Iodine (Betadine. Anesthesia Type: Local. Anesthetic: Lidocaine (Xylocaine) 1% Plain. Local Anesthetic Volume: Other (12 mL). Amniotic Fluid Description: Clear. Episiotomy Type: None. Laceration: 2nd Degree (right vaginal and periurethral repaired with 3-0 and 4-0 Vicryl, left posterior vaginal repaired with 3-0 Vicryal). Placenta: Intact, Spontaneous. Cord: 3 Vessels. Estimated Blood Loss: 450. Resuscitation Needed: No. [place] : Bulb Syringe, Stimulated, Warmed, [place] Used. Provider: Alcides Vasquez. Score 1 min: 8. Score 5 min: 9. Second Stage Interventions : Reports: Pushing Effectively, Pushing, Pulls Own Legs Back, Pushing, Stirrups/ Leg Supports. Delivery Comments (Free Text/Narrative):: Stage I: Gladis Valdez (Opal) was admitted after she had spontaneous rupture membranes on cervical exam. She had initially presented for decreased movement and had a reactive NST. She was also having intermittent pain in the lower abdomen and the nurse was going to check her cervix when she had spontaneous rupture membranes. She had clear fluid with rupture membranes. On admission her cervix was dilated to 3 cm. She was GBS negative. She was given Pitocin for augmentation of labor. She progressed to complete and pushing. Stage II: On 09/13/2018 she had a normal vaginal delivery of a live female infant at 2117. Apgars of 8 & 9. Weight of 3140 g (6 lbs 15 oz). Length of 19.75 inches. There was no nuchal cord. Infant was delivered in KEVIN position. The cord was doubly clamped and cut by father of the . Infant was placed on mother's abdomen. Stage III: She had a spontaneous delivery of an intact placenta in Aline presentation. Three vessel cord. She was given pitocin and fundal massage. She had a second-degree right vaginal and periurethral laceration that was repaired with 3-0 Vicryl and 4-0 Vicryl. She had a second-degree left posterior vaginal laceration that was repaired with 3-0 Vicryl. Mom and baby were stable to recovery. EBL of 450 mL. Diagnosis: Stroke: No - Discharge Data Discharge Date: 09/15/18 Discharge Disposition: Home, Self-Care 01 Condition: Good - Discharge Diagnosis/Problem(s) (1) 40 weeks gestation of SNOMED Code(s): 32988243 ICD Code: Z3A.40 - 40 WEEKS GESTATION OF Status: Acute Current Visit: Yes (2) ancestry requiring population-specific genetic screening SNOMED Code(s): 99491954, 813961710, 386345056 ICD Code: Z13.9 - ENCOUNTER FOR SCREENING, UNSPECIFIED Status: Acute Current Visit: Yes (3) Rubella non-immune status, antepartum SNOMED Code(s): 083214167 ICD Code: O99.89 - OTH DISEASES AND CONDITIONS COMPL PREG/CHLDBRTH; Z28.3 - UNDERIMMUNIZATION STATUS Status: Acute Current Visit: Yes (4) Abnormal Pap smear of cervix SNOMED Code(s): 067540274 ICD Code: R87.619 - UNSP ABNORMAL CYTOLOG FINDINGS IN SPECMN FROM CERVIX UTERI Status: Acute Current Visit: Yes (5) Vaginal delivery SNOMED Code(s): 318416172 ICD Code: O80 - ENCOUNTER FOR FULL-TERM UNCOMPLICATED DELIVERY Status: Acute Current Visit: Yes (6) Second degree perineal laceration during delivery SNOMED Code(s): 9526446 ICD Code: O70.1 - SECOND DEGREE PERINEAL LACERATION DURING DELIVERY Status : Acute Current Visit: Yes - Patient Summary/Data Operative Procedure(s) Performed: None Complications: None Consults: None Hospital Course: Gladis Valdez (Opal) was admitted for spontaneous rupture membranes with clear fluid. On admission her cervix was dilated to 3 cm. She was GBS negative. She progressed to complete and began pushing. On 09/13/2018 she had a normal vaginal delivery of a live female infant at 2117. Apgars of 8 and 9. Weight of 3140 g (6 lbs. 15 oz.). Her course was uneventful. Her pain was well controlled and she had minimal lochia. She was ambulating, tolerating a regular diet and voiding normally. She was breast feeding. She was afebrile and her hematocrit was 30.6 on day #1. She desired to be discharged home on the morning of PPD #2. Her blood type is B+. Her EPDS score was 15/30 prior to discharge and she was offered antidepressant medications she declined. She will follow-up in 1 week with her regular [employer] provider for continued follow- up for monitoring of depression. - Patient Instructions Diet: Regular Diet as Tolerated Activity: Apply Ice, As Tolerated Activity, Other: Nothing in the vagina for 6 weeks Driving: May Drive Today Showering/Bathing: May Shower Notify Provider of: Fever, Increased Pain, Swelling and Redness, Drainage, Nausea and/or Vomiting Other/Special Instructions: Please contact your physician's office if you have heavy vaginal bleeding enough to soak a pad in less than an hour for several hours. Monitor for any signs of an infection in the breasts with severe pain or redness of the breast. - Discharge Plan *PRESCRIPTION DRUG MONITORING PROGRAM REVIEWED*: Not Applicable *COPY OF PRESCRIPTION DRUG MONITORING REPORT IN PATIENT [place]: Not Applicable Home Medications: Home Meds PNV95/Ferrous Fumarate/FA [ Vitamin Tablet] 1 each PO BEDTIME 09/13/18 [ History] Acetaminophen [Tylenol] 650 mg PO Q6H PRN tablet 09/15/18 [Rx] Benzocaine/Menthol [Dermoplast Pain Relief [place]] 1 spray TOP ASDIRECTED PRN canister 09/15/18 [Rx] Hydrocortisone Acetate [Anucort-HC] 25 mg RECTAL BID PRN supp 09/15/18 [Rx] Ibuprofen [Motrin] 600 mg PO Q6H PRN tablet 09/15/18 [Rx] Lanolin [Lansinoh HPA] 1 applic TOP ASDIRECTED PRN tube 09/15/18 [Rx] Janet Rachael [Tucks] 1 pad TOP ASDIRECTED PRN pad 09/15/18 [Rx] Patient Handouts: Vaginal Delivery, Care After, Care of a Perineal Tear Referrals: Jenny Irwin MD [Physician] - (Follow-up in one week for depression check or earlier as needed.) - Discharge Summary/Plan Comment DC Time >30 min.: No - Patient Data Vitals - Most Recent: Last Vital Signs Temp 36.8 C 09/15/18 09:22 Pulse 98 09/15/18 09:22 Resp 17 09/15/18 09:22 BP 127/71 09/15/18 09:22 Pulse Ox 99 09/15/18 09:22 Weight - Most Recent: 105.233 kg I&O - Last 24 hours: Intake & Output 09/14/18 09/15/18 09/15/18 22:59 06:59 14:59 Intake Total 180 Balance 180 Med Orders - Current: Current Medications Acetaminophen (Tylenol) 650 mg PO Q6H PRN PRN Reason: mild pain or fever Last Admin: 09/14/18 01:03 Dose: 650 mg Benzocaine/Menthol (Dermoplast Pain Relief [place]) 0 gm TOP ASDIRECTED PRN PRN Reason: Perineal Comfort Measure Docusate Sodium (Colace) 100 mg PO BID PRN PRN Reason: Constipation Emollient Ointment (Lansinoh Hpa) 0 gm TOP ASDIRECTED PRN PRN Reason: Sore Nipples Last Admin: 09/14/18 16:33 Dose: 1 tube Hydrocortisone Acetate (Anucort-Hc) 25 mg RECTAL BID PRN PRN Reason: Hemorrhoid pain Ibuprofen (Motrin) 600 mg PO Q6H PRN PRN Reason: Mild pain or fever Last Admin: 09/14/18 16:33 Dose: 600 mg Magnesium Hydroxide (Milk Of Magnesia) 30 ml PO BEDTIME PRN PRN Reason: Constipation Prenat Multivit/Associate Professor [employer] Library [employer]/Iron/Folic Ac ( Plus Iron) 1 each PO DAILY PAT Last Admin: 09/14/18 08:34 Dose: 1 each Witch Rachael (Tucks) 1 pad TOP ASDIRECTED PRN PRN Reason: Hemorrhoid pain Discontinued Medications Acetaminophen (Tylenol) 650 mg PO Q6H PRN PRN Reason: Pain (Mild 1-3) and fever Ephedrine Sulfate (Ephedrine Sulfate) 5 mg IVPUSH ASDIRECTED PRN PRN Reason: Hypotension Fentanyl (Sublimaze) 100 mcg EPIDUR Q3H PRN PRN Reason: Pain Fentanyl/Bupivacaine HCl (Ujqqlcjt-Kaddd-Qk 2 Mcg/Ml-0.125%) 100 ml EP ASDIRECTED PAT Lactated Ringer's (Ringers, Lactated) 1,000 mls @ 100 mls/hr IV ASDIRECTED PAT Last Admin: 09/13/18 14:30 Dose: 100 mls/hr Oxytocin/Lactated Ringer's (Pitocin In Lr 10 Units/1,000 Ml) 10 unit in 1,000 mls @ 100 mls/hr IV .CONTINUOUS PAT Oxytocin/Lactated Ringer's (Pitocin In Lr 10 Units/1,000 Ml) 10 unit in 1,000 mls @ 12 mls/hr IV TITRATE PAT; Protocol Last Titration: 09/13/18 16:51 Dose: 10 munits/min, 60 mls/hr Oxytocin/Lactated Ringer's (Pitocin In Lr 10 Units/1,000 Ml) 10 unit in 1,000 mls @ 100 mls/hr IV TITRATE PAT; Protocol Lidocaine HCl (Xylocaine 1%) Confirm Administered Dose 50 ml .ROUTE .[facility] Stop: 09/13/18 21:27 Last Admin: 09/13/18 21:38 Dose: Not Given Lidocaine HCl (Xylocaine 1%) 50 ml INJECT .ONETIME PAT Last Admin: 09/13/18 21:45 Dose: 50 ml Nalbuphine HCl (Nubain) 10 mg IVPUSH Q2H PRN PRN Reason: Pain (moderate 4-6) Nalbuphine HCl (Nubain) 10 mg IVPUSH Q2H PRN PRN Reason: Pain (moderate 4-6) Ondansetron HCl (Zofran) 4 mg IVPUSH Q4H PRN PRN Reason: Nausea/Vomiting Ondansetron HCl (Zofran) 4 mg IVPUSH ONETIME PRN PRN Reason: Nausea/Vomiting Sodium Chloride (Saline Flush) 10 ml FLUSH ASDIRECTED PRN PRN Reason: Keep Vein Open
== END 2018-09-15 11:55 | disposition home or self-care (01) | DRG 807 ==
LOC: JD.OBCHECK 11:26 → JD.OB 11:34 → JD.OBCHECK 13:59 → JD.OB 14:20 → OBSVTOIN 21:17 → JD.OB 21:18
PROVIDERS: ADMIT Obstetrics & Gynecology; ATTEND Obstetrics & Gynecology
PROC: 10H07YZ Insertion of Other Device into Products of Conception, Via Natural or Artificial Opening (ICD-10-PCS; principal; 2018-09-13)
PROC: 0KQM0ZZ Repair Perineum Muscle, Open Approach (ICD-10-PCS; principal; 2018-09-13)
PROC: 10E0XZZ Delivery of Products of Conception, External Approach (ICD-10-PCS; principal; 2018-09-13)
DX: O48.0 Post-term pregnancy (principal); Z37.0 Single live birth; O70.1 Second degree perineal laceration during delivery; Z3A.40 40 weeks gestation of pregnancy; Z88.1 Allergy status to other antibiotic agents; Z88.2 Allergy status to sulfonamides; O76 Abnormality in fetal heart rate and rhythm complicating labor and delivery
CPT/HCPCS: 36415; 59025; 59409; 85025; 86592; A9270-GY; J2590; J7120